=== PATIENT | female | born 1980 | race Caucasian/White ===

== ENCOUNTER 2018-12-04 07:47 | Day surgery (SDC) | payer OTHER, SELFPAY ==
--- NOTE | 2018-12-04 | PATH_ITS ---
[facility] Accession Number: [id number] . 01 Material submitted: . PART A: small bowel - SMALL BOWEL BIOPSIES PART B: stomach - STOMACH ULCER BIOPSIES . 02 Diagnosis: A. Small Bowel Biopsy: Duodenal mucosa with no diagnostic abnormality. Negative for active inflammation, features of sprue, dysplasia and malignancy. . B. Stomach, Ulcer, Biopsies: Acute erosive gastritis with reactive gastropathy. Negative for Helicobacter by immunohistochemistry. Negative for intestinal metaplasia. Negative for dysplasia and malignancy. I12/06/2018 . 02 Electronically signed: . Radha Richards MD, Pathologist NPI- [id number] . 01 Gross description: . Part A: SMALL BOWEL BIOPSIES: Received in formalin are 2 fragment(s) of patel, soft tissue measuring 0.1 x 0.1 x 0.1 cm to 0.2 x 0.2 x 0.2 cm which is entirely submitted and submitted entirely in 1 cassette(s) Part B: STOMACH ULCER BIOPSIES: Received in formalin is 1 fragment(s) of patel, soft tissue measuring 0.3 x 0.2 x 0.2 cm which is entirely submitted and submitted entirely in 1 cassette(s) /DMC /[facility] . 02 Microscopic: . B. An immunohistochemical stain was performed to evaluate for Helicobacter organisms and is negative. The control stain showed appropriate reactivity. . * This test was developed and its performance characteristics determined by [employer]. It has not been cleared or approved by the U.[place]. Food and Drug Administration. The FDA has determined that such clearance or approval is not necessary. This test is used for clinical purposes. It should not be regarded as investigational or for research. . 02 Pathologist provided ICD-10: K25.9 . 02 CPT . 403850, 826924, X30822 Performed at: 01 [facility] [address] [place] [address], [place], [place] [id number] MD Arsenio Lou MD Phone: [phone] Performed at: 02 [facility] [address] [place], [place] [id number] MD Radha Richards MD Phone: [phone]
[2018-12-04 08:34] VITALS: BMI 50.6
[2018-12-04 08:38] VITALS: BP 116/71; PULSE 87; RESP 17; TEMP 36.6; O2SAT 100
[2018-12-04] MEDS: SODIUM CHLORIDE 0.9% 1,000 ML 84 ML IV (08:55)
--- NOTE | 2018-12-04 09:03 | PM.HP.1 ---
History of Present Illness Date Patient Seen: 12/04/18 Time Patient Seen: 09:03 Chief complaint: [id number] Narrative: Early satiety and iron deficiency anemia Patient History Medical History (Updated 12/04/18 @ 09:04 by Víctor Tineo MD) Endometriosis (Acute) Hypertension (Acute) Hypothyroidism (Acute) Social History household members: spouse Family & Social History Social History: household members spouse Meds Home Medications Medication Instructions Recorded Confirmed Type PNV cmb#95-ferrous fumarate-FA 1 tab PO DAILY 12/04/18 12/04/18 History [] ferrous sulfate 0.4 ml PO DAILY 12/04/18 12/04/18 History levothyroxine [Synthroid] 100 mcg PO DAILY 12/04/18 12/04/18 History Allergies Allergy/AdvReac Type Severity Reaction Status Date / Time No Known Drug Allergies Allergy Verified 12/04/18 08:25 Exam Vital Signs (past 8 hours): - 12/04/18 08:38 Temperature 97.8 F Pulse Rate 87 Respiratory Rate 17 Blood Pressure 116/71 Pulse Oximetry 100 Narrative Exam Narrative: Oropharynx free of lesions Chest clear to auscultation percussion Cardiac exam reveals no S3 or murmur Assessment & Plan Assessment & Plan narrative: Assessment iron deficiency anemia and early satiety rule out upper tract source. Need for small-bowel biopsies to rule out celiac disease Plan is to perform upper endoscopy. Risks, benefits, alternatives have been explained.
--- NOTE | 2018-12-04 09:05 | PM.OP.ENDO ---
Operative Date/Time/Diagnoses Date of procedure: 12/04/18 Time of procedure: 09:05 Pre-op diagnosis: See indications and findings Procedure & Clinicians Study performed: EGD Same procedure as scheduled: Yes Indications: Iron deficiency anemia and early satiety Surgeon: Víctor Tineo Procedure Notes Procedure in detail: After informed consent was obtained the patient was placed in left lateral decubitus position. The video upper scope was placed into the oropharynx and with the patient's health swallowed into the esophagus. The esophagus stomach and duodenum were carefully examined. On withdrawal retroflexed view the GE junction was performed. The scope was removed. The patient tolerated the procedure well. Blood loss none Complications none Medications Total sedation time 14 minutes Versed 7 mg fentanyl 100 micro g IV titration Findings 1. Normal esophagus 2. 1.2 cm gastric ulcer at the juction of greater curvature and antrum. No stigmata of bleeding. Biopsies taken to rule out neoplasia 3. Normal duodenal bulb and sweep. Biopsies taken to rule out celiac disease We will merely await biopsies.the she should stop her aspirin at this time and we will add pantoprazole 40 mg p.o. q.day. She will follow up in the office with either with myself or Fatemeh Lopez
[2018-12-04 09:30] VITALS: BP 108/50; PULSE 80; RESP 17; O2SAT 81
[2018-12-04 09:35] VITALS: BP 112/66; PULSE 87; RESP 18; TEMP 36.6; O2SAT 95
[2018-12-04 09:39] VITALS: BP 114/58; PULSE 83; RESP 20; O2SAT 98
[2018-12-04 09:51] VITALS: BP 112/52; PULSE 90; RESP 15; O2SAT 97
[2018-12-04 10:02] VITALS: BP 125/85; PULSE 77; RESP 15; TEMP 36.6; O2SAT 99
== END 2018-12-04 10:19 | disposition home or self-care (01) ==
PROVIDERS: PCP Family Medicine; Visit Provider Internal Medicine Gastroenterology
PROC: 0DJ08ZZ Inspection of Upper Intestinal Tract, Via Natural or Artificial Opening Endoscopic (ICD-10-PCS; CPT 43235; principal; 2018-12-04 09:00)
DX: D50.0 Iron deficiency anemia secondary to blood loss (chronic) (principal); K25.9 Gastric ulcer, unspecified as acute or chronic, without hemorrhage or perforation; I10 Essential (primary) hypertension; E03.9 Hypothyroidism, unspecified; R68.81 Early satiety
CPT/HCPCS: 43239; 88305; 88342